=== PATIENT | female | born 1990 | race Caucasian/White ===

== ENCOUNTER 2017-11-09 13:03 | Emergency (ER) | payer MEDICAID, OTHER ==
[2017-11-09 13:08] VITALS: BP 125/79
--- NOTE | 2017-11-09 13:30 | EDPHY ---
H & P Time Seen by Provider: 11/09/17 13:09 HPI/ROS: CHIEF COMPLAINT: Requesting Xanax HISTORY OF PRESENT ILLNESS: Patient states she has had bad anxiety for at least the last 2 months, she returned then after being in [place] for 2 years. Multiple stressors including relationship and grandfather with stroke and her sister's recent illness. She was seen for anxiety in the [place] emergency department last week. REVIEW OF SYSTEMS: Denies suicidal or homicidal ideation PAST MEDICAL HISTORY: Negative Social history: No drug or alcohol General Appearance: Alert and conversant, cooperative. Patient is tearful, appears anxious, ambulatory. Otherwise normal mental status. Emergency Department course/MDM: Explained to the patient that I do not write prescriptions for benzodiazepines for ongoing anxiety. I offered to speak to her mother but we could not make the phone connection work. She has follow-up as she was a patient of [facility] before she left for [place]. Patient declined discussing other referrals. She does not meet criteria for mental health hold at this time. Smoking Status: Never smoked Constitutional: Initial Vital Signs Temperature (C) 36.7 C 11/09/17 13:05 Heart Rate 86 11/09/17 13:05 Respiratory Rate 16 11/09/17 13:05 Blood Pressure 125/79 H 11/09/17 13:05 O2 Sat (%) 95 11/09/17 13:05 O2 Delivery Mode Room Air Allergies/Adverse Reactions: No Known Allergies Allergy (Unverified 11/09/17 13:05) Home Medications: Medication Instructions Recorded NK [No Known Home Meds] 11/09/17 MDM/Departure - Depart Disposition: Home, Routine, Self-Care Clinical Impression: Anxiety Condition: Good Referrals: Sameera Monterroso MD [Medical Doctor] - As per Instructions
== END 2017-11-09 13:31 | disposition home or self-care (01) ==
LOC: MERGE 13:03
DX: F41.9 Anxiety disorder, unspecified (principal)